=== PATIENT | female | born 1960 | race Caucasian/White ===

== ENCOUNTER 2022-01-06 14:17 | Emergency (ER) | payer BC, SELFPAY ==
--- NOTE | 2022-01-06 14:25 | ECG_ITS ---
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 Measurements Intervals [place] Rate: 66 P: 46 [place]: 162 QRS: 26 QRSD: 85 T: 29 QT: 375 QTc: 393 Interpretive Statements SINUS RHYTHM POSSIBLE LEFT ATRIAL ENLARGEMENT [-0.1mV P-WAVE IN V1/V2] LOW QRS VOLTAGE IN PRECORDIAL LEADS [QRS DEFLECTION < 1.0 mV IN CHEST LEADS] POSSIBLE RIGHT VENTRICULAR CONDUCTION DELAY [RSR (QR) IN V1/V2] No previous ECG available for comparison Electronically Signed On 01-06-2022 15:38:01 CDT by Jamshid Ambrocio M.D. [id number]
--- NOTE | 2022-01-06 14:25 | XRR_ITS ---
PROCEDURE INFORMATION: Exam: XR Chest Exam date and time: 01/06/2022 2:25 PM Age: 61 years old Clinical indication: Pain; Chest pressure; Additional info: Cp TECHNIQUE: Imaging protocol: XR of the chest. Views: 1 view. COMPARISON: No relevant prior studies available. FINDINGS: Lungs: Unremarkable. No consolidation. Pleural spaces: Unremarkable. No pleural effusion. No pneumothorax. Heart/Mediastinum: Unremarkable. No cardiomegaly. Bones/joints: Unremarkable. XR/XR chest 1V portable [id number] IMPRESSION: No acute findings.
[2022-01-06 14:29] VITALS: BP 174/97; PULSE 81; RESP 18; TEMP 36.6; O2SAT 95; BMI 36.6
[2022-01-06 14:35] VITALS: BP 174/111; PULSE 81; RESP 22; O2SAT 94
--- NOTE | 2022-01-06 14:35 | CTR_ITS ---
PROCEDURE INFORMATION: Exam: CT Head Without Contrast Exam date and time: 01/06/2022 2:35 PM Age: 61 years old Clinical indication: Patient HX: C/O dizziness, HTN, and MARQUEZ TECHNIQUE: Imaging protocol: Computed tomography of the head without contrast. Radiation optimization: All CT scans at this facility use at least one of these dose optimization techniques: automated exposure control; mA and/or kV adjustment per patient size (includes targeted exams where dose is matched to clinical indication); or iterative reconstruction. COMPARISON: No relevant prior studies available. RADIATION DOSE METRICS: Total DLP (mGy-cm): 980.02 FINDINGS: Brain: Mild volume loss and white matter disease are identified. There is no acute infarct or edema. No hemorrhage. Cerebral ventricles: No ventriculomegaly. Paranasal sinuses: Visualized sinuses are unremarkable. No fluid levels. Mastoid air cells: Visualized mastoid air cells are well aerated. Bones/joints: Unremarkable. No acute fracture. Soft tissues: Unremarkable. CT/CT head wo con* [id number] IMPRESSION: There are no acute concerning abnormalities.
--- NOTE | 2022-01-06 14:41 | W.ED.WEAKNES ---
HPI - Weakness General: Chief complaint: Weakness Stated complaint: high bp; dizziness; night sweats Time Seen by Provider: 01/06/22 14:25 Source: patient Mode of arrival: ambulatory Limitations: no limitations History of Present Illness: 61-year-old female is here seems very anxious. States that over the last 2 to 3 days she is just felt extremely nervous states she just does not feel right and has had some night sweats some dizziness chest pain. She has had difficulty sleeping as well. States has been checking her blood pressure has been running or high that is caused her concern she also had some mild headaches. Blood pressure here is 170/111 she has no history of high blood pressure in the past does not take any medicine she said appoint with her PCP for tomorrow but was getting concerned with her blood pressure today. Associated symptoms: Reports headache(s); Denies chest pain, chills, dysuria, easy bruising, fever(s), nausea or vomiting Review of Systems Const: Denies: fever(s), chills, body aches or change in appetite Eyes: Denies: blurry vision or eye discomfort ENMT: Denies: throat pain or dental pain Card: Denies: chest pain Resp: Reports: dyspnea GI: Denies: abdominal pain, nausea, vomiting or diarrhea : Denies: dysuria Musc: Denies: neck pain or back pain Skin/Breast: Denies: rash Neuro: Reports: headache(s) Psych: Denies: depression Jaime/Lymph: Denies: easy bruising All/Imm: Denies: urticaria Physical Exam Const: COMMON NORMALS: no acute distress, patient oriented x3 and healthy appearing HENMT: COMMON NORMALS: normocephalic and atraumatic HEAD & SCALP: normocephalic and atraumatic Eye: COMMON NORMALS: Equal, round and reactive pupils present and EOMs intact bilaterally PUPIL: Yes Equal, round and reactive pupils present Neck/C-Spine: COMMON NORMALS: full ROM and supple Chest: COMMONS NORMALS: normal inspection of the chest and normal palpation of entire chest wall Resp: COMMON NORMALS: normal respiratory effort, No retractions, No use of accessory muscles and clear to auscultation bilaterally AUSCULTATION: clear to auscultation bilaterally Cardio: COMMON NORMALS: regular rate, regular rhythm and No murmurs present (Cardio) RATE: regular rate RHYTHM: regular rhythm GI: COMMON NORMALS: Normal to inspection, nondistended, normoactive bowel sounds present, Soft to palpation, non-tender and no masses PALPATION: Yes Soft to palpation Extremity: COMMON NORMALS: normal to inspection and full ROM Neuro: COMMON NORMALS: patient oriented x3, moves all extremities and no focal motor deficits Psych: COMMON NORMALS: mental status grossly normal, Normal thought process present and cooperative THOUGHT PROCESS: Normal thought process present Skin: COMMON NORMALS: no rashes or lesions noted and no wounds GENERAL SKIN EXAM: no rashes or lesions noted Course Vital Signs: Vital signs: Vital Signs Temperature 97.8 F 01/06/22 14:29 Pulse Rate 81 01/06/22 14:35 Respiratory Rate 22 H 01/06/22 14:35 Blood Pressure 174/111 01/06/22 14:35 Pulse Oximetry 94 01/06/22 14:35 MDM - Weakness Medical Decision Making Patient presents here with high blood pressure likely causing her to have a headache and some weakness. CT here shows normal blood work here is normal as well she feels much improved here after blood pressure medicine her blood pressure 130/78 we will start her Norvasc she has an appoint with her PCP tomorrow and is to follow-up and return if worsening she understands agrees to plan. Lab Data : 01/06/22 14:35 01/06/22 14:[address] 01/06/22 14:35 IMPRESSION: There are no acute concerning abnormalities. Laboratory Results WBC 8.0 10^3/uL (4.0-10.0) 01/06/22 14:35 RBC 5.31 10^6/uL (4.1-5.3) H 01/06/22 14:35 Hgb 14.7 g/dL (11.5-15.3) 01/06/22 14:35 Hct 47.1 % (37.0-47.0) H 01/06/22 14:35 MCV 88.7 fl (81-99) 01/06/22 14:35 MCH 27.7 pg (28.0-34.0) L 01/06/22 14:35 MCHC 31.2 g/dL (30.0-36.0) 01/06/22 14:35 RDW 16.0 % (12.1-15.1) H 01/06/22 14:35 Plt Count 312 10^3/cmm (130-400) 01/06/22 14:35 MPV 12.0 fL (7.4-10.4) H 01/06/22 14:35 Neut % (Auto) 68.2 % 01/06/22 14:35 Lymph % (Auto) 22.9 % 01/06/22 14:35 Loving % (Auto) 8.7 % 01/06/22 14:35 Eos % (Auto) 0.0 % 01/06/22 14:35 Baso % (Auto) 0.1 % 01/06/22 14:35 Neut # (Auto) 5.42 10^3/uL (1.8-7.7) 01/06/22 14:35 Lymph # (Auto) 1.8 10^3/uL (0.8-4.8) 01/06/22 14:35 Loving # (Auto) 0.7 10^3/uL (0.2-0.9) 01/06/22 14:35 Eos # (Auto) 0.0 10^3/uL (0.0-0.8) 01/06/22 14:35 Baso # (Auto) 0.0 10^3/uL (0.0-0.1) 01/06/22 14:35 Nucleated RBC % (auto) 0 % 01/06/22 14:35 Nucleated RBCs # 0.0 /100WBC 01/06/22 14:35 Sodium 142 mmol/L (136-145) 01/06/22 14:35 Potassium 4.4 mmol/L (3.5-5.1) 01/06/22 14:35 Chloride 103 mmol/L (98-107) 01/06/22 14:35 Carbon Dioxide 30 mmol/L (22-29) H 01/06/22 14:35 Anion Gap 13.4 (5-19) 01/06/22 14:35 BUN 18 mg/dL (8-23) 01/06/22 14:35 Creatinine 0.5 mg/dL (0.5-0.9) 01/06/22 14:35 GFR Calculation 124.6 mL/min (90-130) 01/06/22 14:35 Glucose 87 mg/dL (65-115) 01/06/22 14:35 Calculated Osmolality 295 mOsm/kg (285-295) 01/06/22 14:35 Calcium 10.6 mg/dL (8.5-10.5) H 01/06/22 14:35 Total Bilirubin 0.3 mg/dL (0.15-1.2) 01/06/22 14:35 AST 22 U/L (0-32) 01/06/22 14:35 ALT 16 U/L (0-33) 01/06/22 14:35 Alkaline Phosphatase 94 IU/L (35-105) 01/06/22 14:35 Troponin T Baseline 8 ng/L (0-10) 01/06/22 14:35 Total Protein 8.0 g/dL (6.6-8.7) 01/06/22 14:35 Albumin 4.6 g/dL (3.5-5.2) 01/06/22 14:35 Globulin 3.4 g/dL (1.3-4.6) 01/06/22 14:35 EKG Data EKG 1: I personally reviewed and interpreted this EKG as follows: EKG interpretation date: 01/06/22 EKG interpretation time: 14:40 Interpretation: nsr hr [address] or t wave abnormalities qrs 85 qtc 388 Discharge Plan Discharge Patient Disposition: Home Clinical Impression: Hypertension Qualifiers: Hypertension type: unspecified Qualified Code(s): I10 - Essential (primary) hypertension Condition: Stable Prescriptions: New amlodipine 5 mg tablet 5 mg PO DAILY Qty: 30 0RF Discharge Orders: Discharge ED (Routine); Ordered 01/06/22 Ordered By: Sandeep Sandoval Discharge Diet: Advance as tolerated Discharge Activity: Resume usual activity Patient Instructions: Hypertension (ED) Coding Level of Care Code ED [facility] Tender for Chg Fwd Exam Comprehensive
[2022-01-06] MEDS: labetalol 5 mg/mL SDV 20mL 10 MG IVP (14:43)
[2022-01-06 14:53] LABS: Basophils % 0.1 %; Hematocrit 47.1 % (37.0-47.0); Hemoglobin 14.7 g/dL (11.5-15.3); Lymphocytes # 1.8 10^3/uL (0.8-4.8); Lymphocytes % 22.9 %; Mean Corpuscular HGB Conc 31.2 g/dL (30.0-36.0); Mean Corpuscular Hemoglobin 27.7 pg (28.0-34.0); Mean Corpuscular Volume 88.7 fl (81-99); Monocytes # 0.7 10^3/uL (0.2-0.9); Monocytes % 8.7 %; Neutrophils # 5.42 10^3/uL (1.8-7.7); Neutrophils % 68.2 %; Nucleated Red Blood Cells % 0 %; Platelet Count 312 10^3/cmm (130-400); Red Blood Count 5.31 10^6/uL (4.1-5.3)
[2022-01-06 15:28] LABS: Alanine Aminotransferase 16 U/L (0-33); Albumin Level 4.6 g/dL (3.5-5.2); Alkaline Phosphatase 94 IU/L (35-105); Anion Gap 13.4 (5-19); Aspartate Amino Transferase 22 U/L (0-32); Blood Urea Nitrogen 18 mg/dL (8-23); Calcium 10.6 mg/dL (8.5-10.5); Carbon Dioxide 30 mmol/L (22-29); Chloride 103 mmol/L (98-107); Globulin 3.4 g/dL (1.3-4.6); Glomerular Filtration Rate 124.6 mL/min (90-130); Glucose 87 mg/dL (65-115); Osmolality Calculated 295 mOsm/kg (285-295); Potassium 4.4 mmol/L (3.5-5.1); Sodium 142 mmol/L (136-145); Total Bilirubin 0.3 mg/dL (0.15-1.2)
[2022-01-06 15:29] LABS: Troponin(5th) Baseline 8 ng/L (0-10)
[2022-01-06 15:46] VITALS: BP 136/78; PULSE 61; RESP 18; TEMP 36.6; O2SAT 95
== END 2022-01-06 15:47 | disposition home or self-care (01) ==
PROVIDERS: Emergency Provider Emergency Medicine; PCP Nurse Practitioner
DX: I10 Essential (primary) hypertension (principal)
CPT/HCPCS: 70450; 71045; 80053; 84484; 85025; 93005; 96374; 99283; J3490